=== PATIENT | female | born 2000 | race Caucasian/White ===

== ENCOUNTER 2022-05-30 12:18 | Outpatient (CLI) | payer OTHER, SELFPAY | END 2022-05-30 12:19 | disposition home or self-care (01) | LOC: US 12:21 | PROVIDERS: Visit Provider Pediatrics Neonatal-Perinatal Medicine | DX: O35.DXX0 Maternal care for other (suspected) fetal abnormality and damage, fetal gastrointestinal anomalies, not applicable or unspecified (principal) | CPT/HCPCS: 76816 ==

== ENCOUNTER 2025-01-01 12:54 | Outpatient (CLI) | payer OTHER, SELFPAY ==
--- NOTE | 2025-01-01 13:00 | CRLHL7_ITS ---
For Patients: As a result of the Century Cures Act, medical imaging exams and procedure reports are released immediately into your electronic medical record. You may view this report before your referring provider. If you have questions, please contact your health care provider. OBSTETRICAL ULTRASOUND TRANSABDOMINAL ???FIRST TRIMESTER, 01/01/2025 CLINICAL INDICATION: Dating and viability. LMP: 11/01/2024 PAT by LMP: 08/08/2025 Gestational age: 8 weeks 5 days Previous ultrasound: No TECHNIQUE: Real-time silverman-scale imaging of the fetus was performed transabdominal. FINDINGS: CRL: 1.9 cm, 8 weeks 3 days; PAT 08/10/2025 heart rate: 167 BPM Gestational sac: 3.2 cm, appears within normal limits Yolk sac: 3.5 mm, appears within normal limits Right ovary: 3.2 x 2.1 x 2.4 cm, CL Left ovary: 2.5 x 1.0 x 1.6 cm IMPRESSION: Single living intrauterine measuring 8 weeks 3 days and sonographic due date of 08/10/2025 KOKO GILLIAM M.D. Diagnostic Radiologist [email or web address] Transcribed: 5:[address]/Dictated by: Koko Gilliam MD @ 01/01/2025 4:23:00 PM (Electronically Signed)
== END 2025-01-01 12:55 | disposition home or self-care (01) ==
PROVIDERS: Visit Provider Registered Nurse
DX: Z34.91 Encounter for supervision of normal pregnancy, unspecified, first trimester (principal); Z3A.08 8 weeks gestation of pregnancy
CPT/HCPCS: 76801; 83021; 84443; 86592; 86703; 86704; 86706; 86762; 86787; 86803; 86850; 86900; 86901; 87086; 87340; 87491; 87591; 87624; 88142